=== PATIENT | female | born 1980 | race Caucasian/White ===

== ENCOUNTER 2016-10-06 08:56 | Day surgery (SDC) | payer BC ==
[~2016-10-06 08:56] MED LIST: ACETAMINOPHEN 1,000 MG/100 ML BTL IV ONE
[2016-10-06] MEDS ORDERED: LIDOCAINE 2% MDV (20MG/ML) 20ML VIAL IV ONE (14:17)
[2016-10-06] MEDS ORDERED: KETOROLAC 30 MG/ML VIAL IVP ONE (14:17)
[2016-10-06] MEDS ORDERED: ONDANSETRON HCL IV 4 MG/2 ML VIAL IVP ONE (14:17)
[2016-10-06] MEDS ORDERED: FENTANYL PF 100MCG/2ML VIAL IV ONE (14:17)
[2016-10-06] MEDS ORDERED: MIDAZOLAM HCL 2MG/2ML VIAL IV ONE (14:17)
[2016-10-06] MEDS ORDERED: PROPOFOL 10 MG/ML VIAL IV ONE (14:17)
[2016-10-06] MEDS ORDERED: MORPHINE SULFATE 5 MG/ML PFS IVP ONE (14:41)
[2016-10-06] MEDS ORDERED: BUPIVACAINE 0.25% W/EPI MPF 30ML VIAL IVP ONE (14:41)
[2016-10-06] MEDS ORDERED: HYDROCODONE/APAP 7.5/325MG TABLET PO ONE (14:41)
--- NOTE | 2016-10-08 10:58 | Operative Note ---
DATE OF SURGERY: 10/06/2016 Surgeon: Jose Conn DO PREOPERATIVE DIAGNOSIS: Torn medial meniscus of the right knee. POSTOPERATIVE DIAGNOSIS: Torn medial meniscus of the right knee. OPERATION: Arthroscopic partial medial meniscectomy, right knee. DESCRIPTION OF PROCEDURE: This 36-year-old female was taken to the operating room and placed in the supine position on the operating room table. A general anesthetic was administered and the right lower extremity was elevated. It was elevated and exsanguinated and the tourniquet inflated to 300 mmHg. The arthroscopic knee lala applied and the right knee prepped with Hibiclens and draped in the usual sterile fashion. An inferolateral portal was established for the 4 mm arthroscope, and initial evaluation of the joint demonstrated normal appearance of the suprapatellar pouch. The articular cartilage of the patellofemoral joint appeared normal. Inferomedial portion was established and probing did not reveal any defects in the articular cartilage. The medial and lateral gutters were examined and found to be normal. The medial compartment was entered and a tear of the medial meniscus was identified with a tear near the root. We resected back to the apex and then re-probed the posterior horn of the medial meniscus and found it to be stable. The patient did have what appeared to be some evidence of attempt at healing of this tear but this extended all the way out into the white area of the meniscus, and there would be no possibility that this would heal on its own. We resected the unstable fragments of the meniscus and re-probed it, confirmed to be stable. The articular cartilage in the medial compartment appeared normal. The intracondylar notch was examined and found to be normal. The lateral compartment was entered. Probing of the lateral meniscus and articular cartilage of the lateral compartment did not reveal any pathology. The joint was then copiously irrigated and suctioned. All areas reexamined. No additional findings were present. The joint was suctioned. The instruments were removed. The portals infiltrated with 0.25% Marcaine with epinephrine. Sutures were placed in the puncture sites and then the sterile dressings applied and patient taken to the recovery room in satisfactory condition. GROSS PATHOLOGY: This patient demonstrated a tear of the root of the posterior horn of the medial meniscus. We resected the unstable fragments of meniscus. The remainder was probed and determined to be stable. CC: LEIGH Gore
== END 2016-10-06 11:25 | disposition home or self-care (01) ==
LOC: SUR 08:56
PROVIDERS: ATTEND Orthopaedic Surgery
DX: S83.241A Other tear of medial meniscus, current injury, right knee, initial encounter (principal)
CPT/HCPCS: 29881; 01400; 81025; J1885; J2405; J3010; J2270